=== PATIENT | female | born 1940 | race Caucasian/White ===

== ENCOUNTER 2019-07-03 13:31 | Emergency (ER) | payer MEDICARE, OTHER ==
[~2019-07-03] VITALS: Ht 167.6 cm; Wt 61.8 kg
[2019-07-03] MEDS ORDERED: ATOR40TA75 PO (14:33)
[2019-07-03] MEDS ORDERED: FISH1000 PO (14:33)
[2019-07-03] MEDS ORDERED: CILO100T PO (14:33)
[2019-07-03] MEDS ORDERED: ASPI81TA85 PO (14:33)
[2019-07-03] MEDS ORDERED: LEVO125T4 PO (14:33)
[2019-07-03] MEDS ORDERED: SERT-155 PO (14:33)
[2019-07-03] MEDS ORDERED: NORCO, ANEXSIA 5/325MG TABLET (HYDROcodone/ACETAMINOPHEN) PO ONE (14:45)
[2019-07-03] MEDS ORDERED: NORC1TAB7 PO (16:30)
[2019-07-03] MEDS ORDERED: WALKER (16:30)
[2019-07-03 16:48] VITALS: BP 173/71
--- NOTE | 2019-07-04 17:53 | ECGEPIP ---
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
== END 2019-07-03 16:51 | disposition home or self-care (01) ==
LOC: M ED 13:31 → EDBD 13:31 → M ED 16:51
DX: S32.502A Unspecified fracture of left pubis, initial encounter for closed fracture (principal); S30.0XXA Contusion of lower back and pelvis, initial encounter; S70.02XA Contusion of left hip, initial encounter; X58.XXXA Exposure to other specified factors, initial encounter; Y92.89 Other specified places as the place of occurrence of the external cause; M16.0 Bilateral primary osteoarthritis of hip; Z79.899 Other long term (current) drug therapy; Z79.890 Hormone replacement therapy; Z79.82 Long term (current) use of aspirin